=== PATIENT | female | born 1955 | race Hispanic/Latino ===

== ENCOUNTER 2017-09-12 09:31 | Emergency (ER) | payer MEDICARE ==
[2017-09-12 09:48] VITALS: BP 176/72
[2017-09-12] MEDS ORDERED: MOTRIN PO ONE (10:01)
--- NOTE | 2017-09-12 10:56 | Emergency Department Report ---
ED Lower Extremity HPI - General Chief Complaint: Extremity Injury, Lower Stated Complaint: (L) KNEE PAIN Time Seen by Provider: 09/12/17 09:58 Source: patient Mode of arrival: Ambulatory Limitations: No Limitations - History of Present Illness Initial Comments: This is a 62-year-old female nontoxic, well nourished in appearance, no acute signs of distress presents to the ED with c/o of acute on chronic left knee pain 2 days. Patient stated that she has been sleeping on a chair in the hospital in the ICU and now has pain. Patient denies any trauma. Patient denies any numbness, tingling, fever, chills, nausea, vomiting, chest pain, shortness of breath, headache, stiff neck. Patient denies any joint swelling or joint redness. Patient denies decreased range of motion. Patient stated has decreased gait due to pain. Patient has a walker. Patient stated has history of osteoarthritis and takes [place] and tramadol for pain and has taken [place] prior to coming to the ER. Patient stated the symptoms are improving subsided. MD Complaint: knee injury -: days(s) (2) Injury: Knee: Left Severity: mild Severity scale (0 -10): 3 Improves With: immobilization Worsens With: movement, palpation Associated Symptoms: able to partially bear weight, ambulatory. denies: snap/ pop sensation, swelling, numbness, tingling, unable to bear weight - Related Data Previous Rx's Medication Instructions Recorded Last Taken Type Diclofenac Sodium [Voltaren] 100 gm TP DAILY PRN #1 gel..gram. 09/12/17 Unknown Rx Allergies Allergy/AdvReac Type Severity Reaction Status Date / Time baicalin [From Limbrel] Allergy Angioedema Verified 09/12/17 09:42 catechin [From Limbrel] Allergy Angioedema Verified 09/12/17 09:42 cefprozil [From Cefzil] Allergy Anaphylaxis Verified 09/12/17 09:42 Cephalosporins Allergy Anaphylaxis Verified 09/12/17 09:42 clindamycin Allergy Angioedema Verified 09/12/17 09:42 dicloxacillin Allergy Anaphylaxis Verified 09/12/17 09:42 doxycycline Allergy Anaphylaxis Verified 09/12/17 09:42 flecainide Allergy Angioedema Verified 09/12/17 09:42 leflunomide [From Arava] Allergy Angioedema Verified 09/12/17 09:42 oxycodone Allergy Angioedema Verified 09/12/17 09:42 Sulfa (Sulfonamide Allergy Angioedema Verified 09/12/17 09:42 Antibiotics) ED Review of Systems ROS: Stated complaint: (L) KNEE PAIN Other details as noted in HPI Constitutional: denies: chills, fever Eyes: denies: eye pain, eye discharge, vision change ENT: denies: ear pain, throat pain Respiratory: denies: cough, shortness of breath, wheezing Cardiovascular: denies: chest pain, palpitations Endocrine: no symptoms reported Gastrointestinal: denies: abdominal pain, nausea, diarrhea Genitourinary: denies: urgency, dysuria, discharge Musculoskeletal: denies: back pain, joint swelling, arthralgia Skin: denies: rash, lesions Neurological: denies: headache, weakness, paresthesias Psychiatric: denies: anxiety, depression Hematological/Lymphatic: denies: easy bleeding, easy bruising ED Past Medical Hx - Past Medical History Previous Medical History?: Yes Hx Hypertension: Yes Hx Congestive Heart Failure: Yes Hx Renal Disease: Yes Hx Headaches / Migraines: Yes Hx Psychiatric Treatment: Yes (anxiety) Additional medical history: Sjogrens, polymyalgia rheumatica, periodic fever syndrome, vitamin d deficiency, iron deficiency anemia, specific antibody deficiency, CKD, renal osteodystrophy, afib, left bundle branch block, sleep apnea - Surgical History Past Surgical History?: Yes Hx Cholecystectomy: Yes Additional Surgical History: tubal ligation, left shoulder, hysterectomy - Social History Smoking Status: Never Smoker Substance Use Type: None - Medications Home Medications: Home Medications Medication Instructions Recorded Confirmed Last Taken Type Diclofenac Sodium [Voltaren] 100 gm TP DAILY PRN #1 gel..gram. 09/12/17 Unknown Rx ED Physical Exam - General Limitations: No Limitations General appearance: alert, in no apparent distress - Head Head exam: Present: atraumatic, normocephalic - Eye Eye exam: Present: normal appearance - ENT ENT exam: Present: mucous membranes moist - Neck Neck exam: Present: normal inspection - Respiratory Respiratory exam: Present: normal lung sounds bilaterally. Absent: respiratory distress - Cardiovascular Cardiovascular Exam: Present: regular rate, normal rhythm. Absent: systolic murmur, diastolic murmur, rubs, gallop - GI/Abdominal GI/Abdominal exam: Present: soft, normal bowel sounds - Extremities Exam Extremities exam: Present: normal inspection, full ROM, tenderness, normal capillary refill. Absent: joint swelling - Expanded Lower Extremity Exam Left Hip exam: Present: normal inspection, full ROM. Absent: tenderness, swelling, abrasion Upper Leg exam: Present: normal inspection, full ROM. Absent: tenderness, swelling Knee exam: Present: normal inspection, full ROM, tenderness, full knee extension. Absent: swelling, abrasion, laceration, ecchymosis, deformity, crepidus, dislocation, erythema, effusion, pain w/ pronation/supination, posterior draw sign, pain/laxity with valgus, pain/laxity with varus Lower Leg exam: Present: normal inspection, full ROM. Absent: tenderness, swelling Ankle exam: Present: normal inspection, full ROM. Absent: tenderness, swelling Foot/Toe exam: Present: normal inspection, full ROM. Absent: tenderness, swelling Neuro vascular tendon exam: Present: no vascular compromise. Absent: pulse deficit, abnormal cap refill, motor deficit, sensory deficit, tendon deficit, extremity cold to touch, pallor, abnormal 2-point discrimination, decreased fine /light touch, foot drop, peroneal nerve deficit, significant pain with passive ROM of distal joint Gait: Positive: observed and limited by pain - Back Exam Back exam: Present: normal inspection, full ROM - Neurological Exam Neurological exam: Present: alert, oriented X3, normal gait - Psychiatric Psychiatric exam: Present: normal affect, normal mood - Skin Skin exam: Present: warm, dry, intact, normal color. Absent: rash ED Course Vital Signs 09/12/17 09:42 Temperature 98.4 F Pulse Rate 83 Respiratory 18 Rate Blood Pressure 176/72 O2 Sat by Pulse 98 Oximetry - Reevaluation(s) Reevaluation #1: 09/12/17 10:55 Patient is speaking in full sentences with no signs of distress noted. ED Lower Extremity MDM - Medical Decision Making This is a 62-year-old female that presents with left knee strain. Patient is stable and was examined by me. I referred patient to an orthopedic doctor for further evaluation for possible MRI. X-ray has been obtained and dictated by the radiologist. Patient is notified of the x-ray report with noted by the patient. Patient does have normal gait with no tenderness and no joint swelling. No ecchymosis. no joint redness or swelling. Not warm to touch. No signs of cellulites present. Patient received a knee immobilize and patient stated has a walker at home. Patient was instructed to RICE therapy. At time of discharge, the patient does not seem toxic or ill in appearance. No acute signs of distress noted. Patient agrees to discharge treatment plan of care. No further questions noted by the patient. Critical care attestation.: If time is entered above; I have spent that time in minutes in the direct care of this critically ill patient, excluding procedure time. ED Disposition Clinical Impression: Strain of left knee Qualifiers: Encounter type: initial encounter Qualified Code(s): S86.912A - Strain of unspecified muscle(s) and tendon(s) at lower leg level, left leg, initial encounter Disposition: TO HOME OR SELFCARE Is pt being admited?: No Does the pt Need Aspirin: No Condition: Stable Instructions: Knee Pain (ED), Knee Immobilizer (ED), RICE Therapy (ED) Additional Instructions: Follow-up with a orthopedic doctor in 3-5 days or if symptoms worsen and continue return to emergency room as soon as possible. Prescriptions: Diclofenac Sodium [Voltaren] 100 gm TP DAILY PRN #1 gel..gram. PRN Reason: Pain , Severe (7-10) Referrals: PRIMARY CAREMD [Primary Care Provider] - 3-5 Days ROSELINE FULTON MD [Staff Physician] - 3-5 Days [facility] [Outside] - 3-5 Days [facility] [Outside] - 3-5 Days
--- NOTE | 2017-09-12 11:19 | XRay Report ---
FINAL REPORT EXAM: XR KNEE 3V LT HISTORY: left knee pain COMPARISON: None. TECHNIQUE: Three views of the left knee FINDINGS: Medial and retropatellar joint space narrowing with tricompartmental osteophyte formation. There is no acute fracture or dislocation. There is no joint effusion. The overlying soft tissues are intact. IMPRESSION: Moderate to severe osteoarthritis without acute fracture or dislocation.
== END 2017-09-12 11:41 | disposition home or self-care (01) ==
LOC: ED 09:31
DX: S86.912A Strain of unspecified muscle(s) and tendon(s) at lower leg level, left leg, initial encounter (principal); I13.0 Hypertensive heart and chronic kidney disease with heart failure and stage 1 through stage 4 chronic kidney disease, or unspecified chronic kidney disease; N18.9 Chronic kidney disease, unspecified; I50.9 Heart failure, unspecified; G43.909 Migraine, unspecified, not intractable, without status migrainosus; F41.9 Anxiety disorder, unspecified; Z90.49 Acquired absence of other specified parts of digestive tract; Z88.1 Allergy status to other antibiotic agents; Z88.2 Allergy status to sulfonamides; Z88.6 Allergy status to analgesic agent; Z88.8 Allergy status to other drugs, medicaments and biological substances; X58.XXXA Exposure to other specified factors, initial encounter; Y93.89 Activity, other specified; Y92.89 Other specified places as the place of occurrence of the external cause; Y99.8 Other external cause status